=== PATIENT | male | born 1990 | race Caucasian/White ===

== ENCOUNTER → 2017-05-28 | Outpatient (CLI) | payer OTHER, SELFPAY | PROVIDERS: Family Provider Emergency Medicine; Visit Provider Nurse Practitioner Family | DX: Z02.4 Encounter for examination for driving license (principal) ==

== ENCOUNTER 2019-12-04 14:03 | Emergency (ER) | payer OTHER, SELFPAY ==
[2019-12-04 14:17] VITALS: BP 133/69; PULSE 71; RESP 18; TEMP 36.8; O2SAT 98; BMI 35.2
[2019-12-04 14:21] VITALS: BMI 35.2
--- NOTE | 2019-12-04 14:21 | XR_ITS ---
PROCEDURE: XR ANKLE RT MIN 3V CLINICAL INDICATION: injury Posttraumatic pain COMPARISON: XR FOOT RT MIN 3V from 12/04/2019 FINDINGS: There is mild soft tissue swelling along the lateral malleolar region. No fracture or dislocation. IMPRESSION: Soft tissue swelling otherwise negative Dictated by: Ace Erickson MD 12/04/2019 14:39 Electronically signed by Ace Erickson MD in [place] 12/04/2019 14:39
[2019-12-04 14:35] VITALS: BP 133/69; PULSE 71; RESP 18; TEMP 36.8; O2SAT 98; BMI 35.2
--- NOTE | 2019-12-04 14:54 | HMH.EDUTC ---
[facility] [place]ression: Right ankle sprain Qualifiers: Encounter type: initial encounter Involved ligament of ankle: unspecified ligament Qualified Code(s): S93.401A - Sprain of unspecified ligament of right ankle, initial encounter Right foot sprain Qualifiers: Encounter type: initial encounter Qualified Code(s): S93.601A - Unspecified sprain of right foot, initial encounter Disposition: Home, Self-Care Condition on Discharge: Good Instructions: DI for Ankle Sprain, DI for Foot Sprain Additional Instructions: Rest the extremity, apply ice for 15 minutes as tolerated three or four times per day, Elevate the extremity as tolerated while you are resting. Take ibuprofen for pain. I sent in a prescription to your pharmacy. Follow up with Dr. Badillo. I put in a referral but you need to call her office and schedule an appointment. Follow up with your regular doctor. GO TO THE ER FOR ANY WORSENING SYMPTOMS Prescriptions: Ibuprofen [Ibuprofen 800mg Tablet] 800 mg PO TIDP PRN #30 tab PRN Reason: Moderate Pain Transmission Status: Received by [id number] Referrals: Mayur López MD [Primary Care Provider] - Francy Badillo DPM [Staff Physician] - Forms: Work/School Release Time of Disposition: 14:58 Medical Decision Making - Medical Records Medical records reviewed: No: I reviewed the patient's medical records. - George Inquiry Pt receiving controlled substance: No Vital Signs: 12/04/19 14:17 12/04/19 14:35 12/04/19 15:10 Temperature 98.2 F 98.2 F 98.2 F Temperature Source Oral Oral Pulse Rate 71 Pulse Rate [Left Radial] 71 71 Respiratory Rate 18 18 18 Blood Pressure 133/69 Blood Pressure [Left Arm] 133/69 133/69 Blood Pressure Mean [Left Arm] 90 90 Blood Pressure Source [Left Arm] Automatic Cuff Automatic Cuff Blood Pressure Position [Left Arm] Sitting Sitting 02 Sat by Pulse Oximetry 98 98 Oxygen Delivery Method Room Air Room Air Orders (Tests/Meds): ED MEDICATIONS Discontinued Medications Generic Name Dose Route Start Last Admin Trade Name Freq PRN Reason Stop Dose Admin Ibuprofen 800 mg 12/04/19 14:57 12/04/19 15:03 Motrin 400mg Tablet PO 12/04/19 14:58 800 mg ONCE ONE Administration Ibuprofen 800 mg 12/04/19 14:58 12/04/19 15:03 Motrin 400mg Tablet PO 12/04/19 14:59 Not Given ONCE ONE - Radiology Data #1 Image(s): Foot/Toes Image Reviewed: Yes I reviewed the patient's radiology image, Yes I have reviewed radiologist's interpretation Preliminary Findings: No Fracture Seen PROCEDURE: XR ANKLE RT MIN 3V CLINICAL INDICATION: injury Posttraumatic pain COMPARISON: XR FOOT RT MIN 3V from 12/04/2019 FINDINGS: There is mild soft tissue swelling along the lateral malleolar region. No fracture or dislocation. IMPRESSION: Soft tissue swelling otherwise negative Dictated by: Ace Erickson MD 12/04/2019 14:39 Electronically signed by Ace Erickson MD in [place] 12/04/2019 14:39 #2 Image(s): Ankle Image Reviewed: Yes I reviewed the patient's radiology image, Yes I have reviewed radiologist's interpretation Preliminary Findings: No Fracture Seen PROCEDURE: XR ANKLE RT MIN 3V CLINICAL INDICATION: injury Posttraumatic pain COMPARISON: XR FOOT RT MIN 3V from 12/04/2019 FINDINGS: There is mild soft tissue swelling along the lateral malleolar region. No fracture or dislocation. IMPRESSION: Soft tissue swelling otherwise negative Dictated by: Ace Erickson MD 12/04/2019 14:39 Electronically signed by Ace Erickson MD in [place] 12/04/2019 14:39 [facility] [place] - General Stated complaint: AO 12/04/19 1:40 right ankle stepped off truck Time Seen by Provider: 12/04/19 14:30 Mode of Arrival: Ambulatory Source of Information: Patient Limitations: No Limitations Description of Symptoms (Recalled from Triage Doc. by RN): Pt c/o R ankle pain/swelling pt reports he stepped off the reginald
[2019-12-04 15:10] VITALS: BP 133/69; PULSE 71; RESP 18; TEMP 36.8; O2SAT 98
== END 2019-12-04 15:15 | disposition home or self-care (01) ==
LOC: UTC 15:18
PROVIDERS: Emergency Provider Nurse Practitioner Family; PCP Family Medicine
DX: S93.601A Unspecified sprain of right foot, initial encounter; X50.1XXA Overexertion from prolonged static or awkward postures, initial encounter; Y92.89 Other specified places as the place of occurrence of the external cause
CPT/HCPCS: 29515; 73610; 73630; 99201; 99203

== ENCOUNTER 2020-08-16 09:14 | Emergency (ER) | payer SELFPAY ==
[2020-08-16 09:24] VITALS: BP 151/90; PULSE 74; RESP 16; TEMP 36.6; O2SAT 98; BMI 35.2
--- NOTE | 2020-08-16 09:30 | HMH.EDUTC ---
[facility] [place] Clinical Impression: Low back pain Qualifiers: Chronicity: unspecified Back pain laterality: left Sciatica presence: with sciatica Sciatica laterality: sciatica of left side Qualified Code(s): M54.42 - Lumbago with sciatica, left side Disposition: Home, Self-Care Condition on Discharge: Good Instructions: Low Back Pain, DI for Low Back Pain Additional Instructions: Go home and rest. It would be best if you rested tomorrow too. No heavy lifting. No twisting. Take the oral medications as directed. The muscle relaxer (robaxin) will make you drowsy, so don't drive or operate heavy machinery after taking it. Don't start the oral steroids (medrol dose pack) until tomorrow, since you had the shots in here today. Follow up with your regular doctor. GO TO THE ER FOR ANY WORSENING SYMPTOMS OR CONCERN, ESPECIALLY BOWEL OR BLADDER ISSUES, SADDLE AREA NUMBNESS, FEVER, ETC Prescriptions: methylPREDNISolone [Medrol] 4 mg PO DIRECTED 6 Days #21 tab.ds.pk Transmission Status: Received by [facility] methocarbamoL [Robaxin 750mg Tab] 750 mg PO BIDP PRN #30 tab PRN Reason: Muscle Spasm Transmission Status: Received by [facility] Referrals: Mayur López MD [Primary Care Provider] - Time of Disposition: 10:46 Medical Decision Making - Medical Records Medical records reviewed: No: I reviewed the patient's medical records. - George Inquiry Pt receiving controlled substance: No Vital Signs: 08/16/20 09:24 08/16/20 10:18 Temperature 98 F 98 F Temperature Source Tympanic Oral Pulse Rate 71 Pulse Rate [Right] 74 Respiratory Rate 16 16 Blood Pressure 142/86 H Blood Pressure [Right Arm] 151/90 H Blood Pressure Mean [Right Arm] 110 Blood Pressure Source [Right Arm] Automatic Cuff Blood Pressure Position [Right Arm] Sitting 02 Sat by Pulse Oximetry 98 Oxygen Delivery Method Room Air - Lab Data Lab Results 08/16/20 09:30: Urine Color Yellow, Urine Appearance Clear, Urine pH 5.0, Ur Specific [place] 1.030, Urine Protein Negative, Urine Glucose (UA) Negative, Urine Ketones Negative, Urine Blood Negative, Urine Nitrate Negative, Urine Bilirubin Negative, Urine Urobilinogen 0.2, Ur Leukocyte Esterase Negative Orders (Tests/Meds): ED MEDICATIONS Discontinued Medications Generic Name Dose Route Start Last Admin Trade Name Mayte PRN Reason Stop Dose Admin Ketorolac Tromethamine 60 mg 08/16/20 10:11 08/16/20 10:17 Ketorolac 60mg/2ml Vial IM 08/16/20 10:12 60 mg ONCE ONE Administration Methylprednisolone Sodium Succinate 125 mg 08/16/20 10:11 08/16/20 10:17 Methylprednisolone Sod Succ 125mg Vial IM 08/16/20 10:12 125 mg ONCE ONE Administration - Radiology Data #1 Image(s): L-Spine Image Reviewed: Yes I reviewed the patient's radiology image, Yes I have reviewed radiologist's interpretation Preliminary Findings: Abnormal PROCEDURE: XR LUMBAR SPINE 2-3V CLINICAL INDICATION: pain COMPARISON: No exams were available for comparison FINDINGS: Postsurgical changes are present with inter pedicular screws and connecting rods at L3-L4 and L5. Mild concave deformity involves the superior endplate of L4 age indeterminate. There is normal alignment. No lytic or blastic change. There is mild degenerative disc disease at L3-L4. Other findings:None. IMPRESSION: Postsurgical changes. Mild compression fracture involves the superior endplate of L4 age indeterminate Dictated by: Ace Erickson MD 08/16/2020 10:49 Ace Erickson MD in [place] 08/16/2020 10:49 [facility] [place] HPI - General Stated complaint: sharp pain lower left back, no accident Time Seen by Provider: 08/16/20 09:30 Mode of Arrival: Ambulatory Source of Information: Patient Limitations: No Limitations Description of Symptoms (Recalled from Triage Doc. by RN): pt is having lower Left sided back pain. he has a hx with broken vertebrae in his lower back. (he h
--- NOTE | 2020-08-16 09:43 | XR_ITS ---
PROCEDURE: XR LUMBAR SPINE 2-3V CLINICAL INDICATION: pain COMPARISON: No exams were available for comparison FINDINGS: Postsurgical changes are present with inter pedicular screws and connecting rods at L3-L4 and L5. Mild concave deformity involves the superior endplate of L4 age indeterminate. There is normal alignment. No lytic or blastic change. There is mild degenerative disc disease at L3-L4. Other findings:None. IMPRESSION: Postsurgical changes. Mild compression fracture involves the superior endplate of L4 age indeterminate Dictated by: Ace Erickson MD 08/16/2020 10:49 Ace Erickson MD in [place] 08/16/2020 10:49
[2020-08-16 10:15] LABS: Apearance,Urine Clear (Clear); Color,Urine Yellow (Yellow); Protein,Urine Negative (Negative)
[2020-08-16 10:16] LABS: Bilirubin,Urine Negative (Negative); Blood, Urine Negative (Negative); Glucose,Urine (UA) Negative (Negative); Ketones,Urine Negative (Negative); UTC Leukocyte Esterase,Urine Negative (Negative); UTC Nitrate,Urine Negative (Negative); Urobilinogen,Urine 0.2 EU/dl (0.2)
[2020-08-16 10:18] VITALS: BP 142/86; PULSE 71; RESP 16; TEMP 36.6
== END 2020-08-16 10:54 | disposition home or self-care (01) ==
PROVIDERS: Emergency Provider Nurse Practitioner Family; PCP Family Medicine
DX: M54.42 Lumbago with sciatica, left side (principal)
CPT/HCPCS: 72100; 81003; 96372; 99202; G0463

== ENCOUNTER 2021-08-29 10:47 | Emergency (ER) | payer SELFPAY ==
[2021-08-29 12:05] VITALS: BP 142/91; PULSE 89; RESP 19; TEMP 36.8; O2SAT 98; BMI 43.4
--- NOTE | 2021-08-29 12:29 | HMH.EDUTC ---
[facility] [place]: Otitis media Qualifiers: Otitis media type: suppurative Chronicity: acute Laterality: bilateral Recurrence: non-recurrent Spontaneous tympanic membrane rupture: without spontaneous rupture Qualified Code(s): H66.003 - Acute suppurative otitis media without spontaneous rupture of ear drum, bilateral Pharyngitis Qualifiers: Pharyngitis/tonsillitis etiology: other specified organisms Qualified Code(s): J02.8 - Acute pharyngitis due to other specified organisms Disposition: Home, Self-Care Condition on Discharge: Good Instructions: Middle Ear Infection Additional Instructions: Drink plenty of fluids. Take tylenol or ibuprofen for pain or fever. Take the medications as directed. Follow up with your regular doctor. GO TO THE ER FOR ANY WORSENING SYMPTOMS Stop the azithromycin pack that you are taking. Prescriptions: Brompheniramine/Pseudoephed/Dm [Bromfed Dm Cough Syrup] 5 ml PO Q6HP PRN #240 ml PRN Reason: Cough Transmission Status: Received by [facility] Amoxicillin/Potassium Clav [Amox-Clav 875-125 mg Tablet] 1 tab PO BID #20 tab Transmission Status: Received by [facility] methylPREDNISolone [Medrol] 4 mg PO DIRECTED 6 Days #21 packet Transmission Status: Received by [facility] Referrals: Provider,Referral, [Primary Care Provider] - Forms: Work/School Release Time of Disposition: 12:33 Medical Decision Making - Medical Records Medical records reviewed: No: I reviewed the patient's medical records. - George Inquiry Pt receiving controlled substance: No Vital Signs: 08/29/21 12:05 08/29/21 12:45 Temperature 98.3 F 98.3 F Temperature Source Oral Pulse Rate 89 Pulse Rate [Left Brachial] 89 Respiratory Rate 19 19 Blood Pressure 142/91 H Blood Pressure [Left Arm] 142/91 H Blood Pressure Mean [Left Arm] 108 Blood Pressure Source [Left Arm] Automatic Cuff Blood Pressure Position [Left Arm] Sitting 02 Sat by Pulse Oximetry 98 Oxygen Delivery Method Room Air - Lab Data Lab Results 08/29/21 12:10: Group A Strep Rapid Negative Orders (Tests/Meds): ORDERS Category Date Time Status Strep Screen Confirmation Stat Micro 08/29/21 12:10 Re[place] [facility] [place] - General Stated complaint: SOA,cough,ear pain Time Seen by Provider: 08/29/21 12:29 Mode of Arrival: Ambulatory Source of Information: Patient Limitations: No Limitations Description of Symptoms (Recalled from Triage Doc. by RN): PATIENT STATES HE WAS RECENTLY EXPOSED TO STREP, C/O SORE THROAT AND EAR PAIN X 2 DAYS HEENT Symptoms (Recalled from RN notes): Yes Resp Symptoms (Recalled from RN notes): No Skin Symptoms (Recalled from RN notes): No MS Symptoms (Recalled from RN notes): No Functional Status (Recalled from RN notes): WNL - History of Present Illness Provider Complaint: He states that both his daughter and had strep throat last week. He started to feel bad about 3 days ago. He has started a z-pack, but he states that he is feeling worse instead of better. He denies shortness of breath. - Related Data Previous Rx's Medication Instructions Recorded Ibuprofen [Ibuprofen 800mg 800 mg PO TIDP PRN #30 tab 12/04/19 Tablet] methocarbamoL [Robaxin 750mg Tab] 750 mg PO BIDP PRN #30 tab 08/16/20 methylPREDNISolone [Medrol] 4 mg PO DIRECTED 6 Days #21 08/16/20 tab.ds.pk Azithromycin [Z-Nicola 250mg Tab*] 250 mg PO UD DOSE PK #6 tab 08/25/21 Amoxicillin/Potassium Clav 1 tab PO BID #20 tab 08/29/21 [Amox-Clav 875-125 mg Tablet] Brompheniramine/Pseudoephed/Dm 5 ml PO Q6HP PRN #240 ml 08/29/21 [Bromfed Dm Cough Syrup] methylPREDNISolone [Medrol] 4 mg PO DIRECTED 6 Days #21 08/29/21 packet Allergies Allergy/AdvReac Type Severity Reaction Status Date / Time No Known Allergies Allergy Verified 08/16/20 09:20 - Worker's Comp Is this a Worker's Comp case?: No [facility] History - Hepatitis A Screen
[2021-08-29 12:44] LABS: Strep Scrn Group A (Rapid) Negative (Negative)
[2021-08-29 12:45] VITALS: BP 142/91; PULSE 89; RESP 19; TEMP 36.8; O2SAT 98
== END 2021-08-29 12:47 | disposition home or self-care (01) ==
PROVIDERS: Emergency Provider Nurse Practitioner Family
DX: H66.003 Acute suppurative otitis media without spontaneous rupture of ear drum, bilateral (principal); J02.8 Acute pharyngitis due to other specified organisms
CPT/HCPCS: 87430; 99212; G0463

== ENCOUNTER 2021-10-24 18:03 | Emergency (ER) | payer SELFPAY ==
[2021-10-24 19:15] VITALS: BP 173/83; PULSE 106; RESP 16; TEMP 37.4; O2SAT 95; BMI 33.9
[2021-10-24 19:20] LABS: Strep Scrn Group A (Rapid) Negative (Negative)
--- NOTE | 2021-10-24 19:32 | HMH.EDUTC ---
[facility] [place] Disposition Clinical Impression: Otitis media Qualifiers: Otitis media type: unspecified Laterality: bilateral Qualified Code(s): H66.93 - Otitis media, unspecified, bilateral Disposition: Home, Self-Care Condition on Discharge: Good Instructions: DI for Tympanic Membrane Perforation-Adult, Middle Ear Infection Additional Instructions: Take medication as prescribed Follow up with ENT you may call the office for appointment Return if needed Straight to ER if any life threatening symptoms Prescriptions: Amoxicillin/Potassium Clav [Amox-Clav 875-125 mg Tablet] 1 tab PO BID #20 tab Transmission Status: Pending to [id number] Referrals: Mayur López MD [Primary Care Provider] - As needed Luiz Ford MD [Physician] - Kt Rossi MD [Physician] - Time of Disposition: 19:43 Medical Decision Making - George Inquiry Pt receiving controlled substance: No George was queried for this patient: No Vital Signs: 10/24/21 19:15 Temperature 99.4 F Temperature Source Oral Pulse Rate [Left Brachial] 106 H Respiratory Rate 16 Blood Pressure [Left Arm] 173/83 H Blood Pressure Mean [Left Arm] 113 Blood Pressure Source [Left Arm] Automatic Cuff Blood Pressure Position [Left Arm] Sitting 02 Sat by Pulse Oximetry 95 Oxygen Delivery Method Room Air - Lab Data Lab results reviewed: Yes: I reviewed the patient's lab results. Lab Results 10/24/21 19:08: Group A Strep Rapid Negative Orders (Tests/Meds): ORDERS Category Date Time Status Strep Screen Confirmation Stat Micro 10/24/21 19:08 Received [facility] [place] HPI - General Stated complaint: ear ache Time Seen by Provider: 10/24/21 19:32 Mode of Arrival: Ambulatory Source of Information: Patient Limitations: No Limitations Description of Symptoms (Recalled from Triage Doc. by RN): PATIENT C/O BILATERAL EAR PAIN AND SORE THROAT X 1 WEEK HEENT Symptoms (Recalled from RN notes): Yes Resp Symptoms (Recalled from RN notes): No Skin Symptoms (Recalled from RN notes): No MS Symptoms (Recalled from RN notes): No Functional Status (Recalled from RN notes): WNL - History of Present Illness Provider Complaint: Patient state that he has been having sore throat and bilateral ear pain and pressure States that it has continued to get worse over the last week states that he noticed some blood coming from his right ear and thinks his ear drum may have busted state that tonight his ears was hurting worse so he came in - Related Data Previous Rx's Medication Instructions Recorded Amoxicillin/Potassium Clav 1 tab PO BID #20 tab 10/24/21 [Amox-Clav 875-125 mg Tablet] Allergies Allergy/AdvReac Type Severity Reaction Status Date / Time No Known Allergies Allergy Verified 08/16/20 09:20 - Worker's Comp Is this a Worker's Comp case?: No [facility] History - Hepatitis A Screen Attestation statement:: This patient has been screened for Hepatitis A risk factors. I have reviewed the patient's past medical history: Yes Other Surgeries: Yes: Other Comment: Back 2007. Left Leg x 2 - Social History Smoking Status: Unknown if ever smoked Alcohol Intake: never Occupational Status: employed Family Hx:: Cancer ROS Obtained: Yes All systems reviewed & no additional complaints, Yes Systems reviewed as appropriate & no additional complaints - Constitutional Constitutional: Reports system reviewed and no additional complaints, except as docu, Denies body ache, Denies chills, Reports fever(s) - ENT Ears, Nose, Mouth, and Throat: Reports system reviewed and no additional complaints, except as docu, Reports otalgia, Reports sore throat - Cardiovascular Cardiovascular: Reports system reviewed and no additional complaints, except as docu - Respiratory Respiratory: Reports system reviewed and no additional complaints, except as docu - Gastrointestinal Gastrointestingal: Reports: system reviewed and no additional complaints, except as
[2021-10-24 19:47] VITALS: BP 173/83; PULSE 106; RESP 16; TEMP 37.4; O2SAT 95
== END 2021-10-24 19:51 | disposition home or self-care (01) ==
PROVIDERS: Emergency Provider Nurse Practitioner; PCP Family Medicine
DX: H66.93 Otitis media, unspecified, bilateral (principal)
CPT/HCPCS: 87430; 99212; G0463

== ENCOUNTER 2022-01-18 02:32 | Emergency (ER) | payer SELFPAY ==
[2022-01-18 02:34] VITALS: BP 113/82; PULSE 76; RESP 18; TEMP 36.8; O2SAT 100; BMI 37.3
--- NOTE | 2022-01-18 02:44 | PC.NURSE ---
EYE BOX PLACED IN ROOM. PT DENIES NEEDS AT THIS TIME. EDU.
--- NOTE | 2022-01-18 03:00 | HMH.EDEYEP ---
ED Disposition Clinical Impression: Iritis Corneal FB (foreign body) Qualifiers: Encounter type: initial encounter Laterality: left Qualified Code(s): T15.02XA - Foreign body in cornea, left eye, initial encounter Disposition: Home, Self-Care Condition on Discharge: Good Instructions: DI for Foreign Body in the Eye Additional Instructions: use meds and see eye provider madan Referrals: Mayur López MD [Primary Care Provider] - - Critical Care Critical Care Time: No Attestation: On 01/18/22, the high probability of a clinically significant, sudden or life threatening deterioration of the following system(s) required my full and direct attention, intervention and personal management. The time I documented below is in addition to time spent performing reported procedures but includes the following listed in this critical care notation. Medical Decision Making - Medical Records Medical records reviewed: Yes: I reviewed the patient's medical records. - George Inquiry Pt receiving controlled substance: No Vital Signs: 01/18/22 02:34 Temperature 98.2 F Temperature Source Oral Pulse Rate [Right] 76 Respiratory Rate 18 Blood Pressure [Right Arm] 113/82 Blood Pressure Mean [Right Arm] 92 02 Sat by Pulse Oximetry 100 - Lab Data Lab results reviewed: Yes: I reviewed the patient's lab results. Eye Problem HPI - General Chief complaint: Eye Problems Stated complaint: Left eye sensitive to light,hurts,cosme Time Seen by Provider: 01/18/22 03:00 Mode of Arrival: Ambulatory Source of Information: Patient, Medical Record Limitations: No Limitations Description of Symptoms (Recalled from ER Triage Doc. by RN): pt states woke up yesterday mornig and lt eye swollwn, puffy, burning, and painful to close - History of Present Illness HPI Narrative: atraumatic pain to lt eye with reddness and sensitive to light - no contacts and no visual loss - chief complaint: eye redness Onset (ago): day(s) Onset description: unknown Duration: constant Location: left eye Eye Symptoms: redness, photophobia Place: home Mechanism: none Severity: moderate Associated symptoms: none Treatments Prior to Arrival: none - Related Data Previous Rx's Medication Instructions Recorded Amoxicillin/Potassium Clav 1 tab PO BID #20 tab 10/24/21 [Amox-Clav 875-125 mg Tablet] ciprofloxacin 0.3 %-dexamethasone 4 drp OT BID 7 Days #7.5 ml 10/28/21 0.1 % ear drops,suspension fluticasone propionate 50 1 spray NS BID #16 g 10/28/21 mcg/actuation nasal spray,suspension methylprednisolone 4 mg tablets in 4 mg PO DAILY #21 tab 11/12/21 a dose pack Allergies Allergy/AdvReac Type Severity Reaction Status Date / Time No Known Allergies Allergy Verified 11/12/21 12:51 [facility] History - Hepatitis A Screen Attestation statement:: This patient has been screened for Hepatitis A risk factors. I have reviewed the patient's past medical history: Yes Other Surgeries: Yes: Other Comment: Back 2007. Left Leg x 2 - Social History Smoking Status: Unknown if ever smoked Alcohol Intake: never Occupational Status: employed Family Hx:: Cancer ROS Obtained: Yes All systems reviewed & no additional complaints - Constitutional Constitutional: Denies fever(s) - Eyes Eyes: Reports as per HPI, Denies change in vision, Denies loss of vision, Reports sensitivity to light, Reports eye pain, Denies tunnel vision - ENT Ears, Nose, Mouth, and Throat: Denies epistaxis - Cardiovascular Cardiovascular: Denies dyspnea - Respiratory Respiratory: Denies shortness of breath - Gastrointestinal Gastrointestingal: Denies: abdominal pain - Genitourinary Male Genitourinary: Denies hematuria - Musculoskeletal Musculoskeletal: Denies neck pain - Integumentary/Breasts Skin/Breast: Denies rash - Neurologic Neurologic: Denies confusion, Denies loss of vision Physical Exam - General General appearance: alert -
[2022-01-18 03:36] VITALS: BP 110/74; PULSE 72; RESP 18; TEMP 36.8; O2SAT 100
--- NOTE | 2022-01-18 07:59 | PC.NURSE ---
spoke via phone with Dr Zaman. Dr Zaman advised that he is going to call pt and speak with them. Phone number in chart was provided to Dr Zaman.
== END 2022-01-18 03:41 | disposition home or self-care (01) ==
PROVIDERS: Emergency Provider Emergency Medicine; PCP Family Medicine
DX: T15.02XA Foreign body in cornea, left eye, initial encounter (principal); H53.142 Visual discomfort, left eye; Z79.51 Long term (current) use of inhaled steroids; Z79.52 Long term (current) use of systemic steroids; Z79.899 Other long term (current) drug therapy; Z80.9 Family history of malignant neoplasm, unspecified
CPT/HCPCS: 99283

== ENCOUNTER → 2022-06-15 10:10 | Outpatient (CLI) | payer OTHER, SELFPAY ==
--- NOTE | 2022-06-15 10:21 | XR_ITS ---
FINAL REPORT CLINICAL HISTORY: . back pain, headache, hx fusion at 16 years old. COMPARISON: Lumbar spine radiographs dated August 16, 2020 FINDINGS: CERVICAL SPINE Five views were obtained. There is no acute fracture. There is no malalignment. The disc spaces are preserved. There is no soft tissue abnormality. IMPRESSION: No acute bony abnormality. THORACIC SPINE Two views were obtained. There is no acute fracture. There is no malalignment. There are mild degenerative changes in the lower thoracic spine with small osteophytes. There is no soft tissue abnormality. IMPRESSION: Mild degenerative changes with no acute bony abnormality. LUMBAR SPINE Five views were obtained. There are postoperative changes from fusion L3 through L5. There is no acute fracture. There is a chronic L4 compression fracture which appears stable. There is no malalignment. There are mild degenerative changes in the upper lumbar spine with osteophytes. There is no soft tissue abnormality. IMPRESSION: Postoperative and degenerative changes, stable. No acute bony abnormality. Reviewed, Interpreted and Dictated by Eduardo Romano III, MD Transcribed by Dyan Fournier Authenticated and [facility]
== END ==
PROVIDERS: PCP Nurse Practitioner Family; Visit Provider Nurse Practitioner Family
DX: R51.9 Headache, unspecified (principal); M54.6 Pain in thoracic spine; M54.50 Low back pain, unspecified; Z98.1 Arthrodesis status
CPT/HCPCS: 72084

== ENCOUNTER 2022-09-02 08:01 | Emergency (ER) | payer OTHER, SELFPAY ==
[2022-09-02 08:10] VITALS: BP 140/85; PULSE 63; RESP 20; TEMP 37.1; O2SAT 98; BMI 35.2
--- NOTE | 2022-09-02 08:44 | EXP.UTC ---
Discharge Plan Disposition Patient Disposition: Home, Self-Care Condition: Good Prescriptions Prescriptions: New methylprednisolone 4 mg Tablets,Dose Pack 4 mg PO DIRECTED Qty: 21 0RF amoxicillin-pot clavulanate 875-125 mg Tablet 1 tab PO Q12H Qty: 20 0RF pseudoephedrine HCl 30 mg tablet 30 mg PO Q6HP PRN (Reason: Congestion) Qty: 30 0RF Referrals Follow up/Referrals: Solange Fierro APRN [Primary Care Provider] - See instructions Activity Restrictions/Add. Instructions Additional Instructions/Restrictions: Drink plenty of fluids. Take tylenol or ibuprofen for pain or fever. Take the medications as directed. Follow up with your regular doctor. GO TO THE ER FOR ANY WORSENING SYMPTOMS Clinical Impressions Clinical Impression: Otitis media Instructions Patient Instructions: Middle Ear Infection, Methylprednisolone, Amoxicillin and Clavulanic Acid Discharge ED Provider: Amrit Cates [facility] [place] HPI General Stated complaint: congestion, ear pain, hard time hearing Mode of Arrival: Ambulatory Source of Information: Patient Limitations: No Limitations Time Seen by Provider: 09/02/22 08:43 Description of Symptoms (Recalled from Triage Doc. by RN): Ears congested for 3 days, and bilateral ear pressure HEENT Symptoms (Recalled from RN notes): Yes Resp Symptoms (Recalled from RN notes): No Skin Symptoms (Recalled from RN notes): No MS Symptoms (Recalled from RN notes): No Functional Status (Recalled from RN notes): n/a History of Present Illness Provider Complaint: He states that he has had ear pain and sinus congestion for 3 days. Related Data Previous Rx's Medication Instructions Recorded amoxicillin 875 mg-potassium 1 tab PO Q12H #20 tabs 09/02/22 clavulanate 125 mg tablet methylprednisolone 4 mg tablets in 4 mg PO DIRECTED #21 tabs 09/02/22 a dose pack pseudoephedrine HCl 30 mg tablet 30 mg PO Q6HP PRN Congestion #30 09/02/22 tabs Allergies Allergy/AdvReac Type Severity Reaction Status Date / Time No Known Allergies Allergy Verified 09/02/22 08:08 Worker's Comp Is this a Worker's Comp case?: No [facility] Disclaimer: The information contained in this section may have been updated after the patient was seen, as this information can be updated by other users. Social History Smoking Status: Unknown if ever smoked alcohol intake: never current occupational status: employed Travel in the last 8 weeks: None ROS Obtained: Yes All systems reviewed & no additional complaints except as documented Constitutional Constitutional: Reports poor appetite Eyes Eyes: Reports system reviewed and no additional complaints, except as documented ENT Ears, Nose, Mouth, and Throat: Reports as per HPI Cardiovascular Cardiovascular: Reports system reviewed and no additional complaints, except as documented and Denies chest pain Respiratory Respiratory: Denies shortness of breath, Denies chest congestion, Reports cough, Denies stridor and Denies wheezing Gastrointestinal Gastrointestingal: Reports system reviewed and no additional complaints, except as documented; Denies abdominal pain, diarrhea or vomiting Musculoskeletal Musculoskeletal: Reports system reviewed and no additional complaints, except as documented and Denies arthralgias Integumentary/Breasts Skin/Breast: Reports system reviewed and no additional complaints, except as documented and Denies rash Neurologic Neurologic: Denies paresthesias Allergic/Immunologic Allergic/Immunologic: Denies wheezing Physical Exam General General appearance: alert and in no apparent distress Head Head exam: atraumatic, normocephalic and normal inspection Eye Eye exam: Present normal appearance; Absent PERRL or EOMI ENT ENT exam: Present mucous membranes moist and normal external ear exam Expanded ENT Exam TM/Canal exam: Bilateral TM: erythema, bulging and effusion Nose exam:
[2022-09-02 09:04] VITALS: BP 140/85; PULSE 63; RESP 20; TEMP 37.1; O2SAT 98
== END 2022-09-02 09:01 | disposition home or self-care (01) ==
PROVIDERS: Emergency Provider Nurse Practitioner Family; PCP Nurse Practitioner Family
DX: H66.93 Otitis media, unspecified, bilateral (principal); R09.81 Nasal congestion
CPT/HCPCS: 99212; 99214; G0463

== ENCOUNTER 2023-05-13 09:29 | Emergency (ER) | payer OTHER, SELFPAY ==
--- NOTE | 2023-05-13 10:26 | EXP.UTC ---
Discharge Plan Disposition Patient Disposition: Home, Self-Care Condition: Good Prescriptions Prescriptions: New ondansetron 4 mg Tablet,Disintegrating 4 mg PO Q8H PRN (Reason: Nausea) Qty: 12 0RF dicyclomine 20 mg tablet 20 mg PO BID PRN (Reason: abdominal cramping) Qty: 20 0RF Referrals Follow up/Referrals: Provider,Referral, MD [Primary Care Provider] - See instructions Activity Restrictions/Add. Instructions Additional Instructions/Restrictions: Drink plenty of fluids. Take tylenol for pain or fever. Take the medications as directed. Follow up with your regular doctor. GO TO THE ER FOR ANY WORSENING SYMPTOMS, ESPECIALLY WORSENING ABDOMINAL PAIN The diarrhea panel that we collected should take 2 to 3 days to complete. Clinical Impressions Clinical Impression: Gastroenteritis, Diarrhea Stand Alone Forms Stand Alone Forms: Work/School Release Instructions Patient Instructions: Viral Gastroenteritis, DI for Viral Gastroenteritis -- Adult, Ondansetron, Dicyclomine Discharge ED Provider: Amrit Cates [facility] General Stated complaint: diarreah, nausea, cold sweats Time Seen by Provider: 05/13/23 10:26 History of Present Illness Provider Complaint: He states that for the past 1 day he has had nausea and diarrhea. He has felt like he was going to vomit, but he has not vomited so far. He has abdominal cramping, but no constant abdominal pain. He has had chills, but no documented fever. Related Data Previous Rx's Medication Instructions Recorded dicyclomine 20 mg tablet 20 mg PO BID PRN abdominal 05/13/23 cramping #20 tabs ondansetron 4 mg disintegrating 4 mg PO Q8H PRN Nausea #12 tabs 05/13/23 tablet Allergies Allergy/AdvReac Type Severity Reaction Status Date / Time No Known Allergies Allergy Verified 05/13/23 10:58 [facility] Disclaimer: The information contained in this section may have been updated after the patient was seen, as this information can be updated by other users. Social History Smoking Status: Unknown if ever smoked alcohol intake: never current occupational status: employed Travel in the last 8 weeks: None ROS Obtained: Yes All systems reviewed & no additional complaints except as documented Constitutional Constitutional: Denies chills, Denies fever(s) and Reports poor appetite ENT Ears, Nose, Mouth, and Throat: Denies dizziness and Denies sore throat Cardiovascular Cardiovascular: Denies dyspnea Respiratory Respiratory: Denies chest congestion, Denies cough and Denies dyspnea Gastrointestinal Gastrointestingal: Reports as per HPI, cramping, diarrhea and nausea; Denies abdominal pain or vomiting Musculoskeletal Musculoskeletal: Denies arthralgias Integumentary/Breasts Skin/Breast: Denies rash Neurologic Neurologic: Denies dizziness Physical Exam General General appearance: alert and in no apparent distress Head Head exam: atraumatic and normocephalic Eye Eye exam: Present normal appearance, PERRL and EOMI ENT ENT exam: Present normal exam, normal oropharynx, mucous membranes moist, TM's normal bilaterally and normal external ear exam Neck Neck exam: Present normal inspection, full ROM and trachea midline; Absent tenderness, meningismus or lymphadenopathy Chest Chest inspection: Present normal inspection and symmetric chest wall rise; Absent tenderness, rash or abscess Respiratory Respiratory exam: Present normal lung sounds bilaterally; Absent respiratory distress, wheezes or stridor Cardiovascular Cardiovascular exam: Present regular rate and normal rhythm; Absent irregular rhythm, systolic murmur, diastolic murmur or JVD Abdominal Exam Abdominal exam: Present soft and hyperactive bowel sounds; Absent distention, tenderness, guarding, rebound, rigidity, psoas sign, obturator sign, heel tap sign, Herrera's sign, Rovsing's sign or tenderness at McBurney's Point Extremities Exam
[2023-05-13 10:30] VITALS: BP 119/80; PULSE 103; RESP 18; TEMP 37; O2SAT 99; BMI 29.7
[2023-05-13 10:38] LABS: UTC Influenza A Antigen Negative (Negative); UTC Influenza B Antigen Negative (Negative)
[2023-05-13 10:57] LABS: Adenovirus F 40/41, stool Not Detected (NotDetected); Astrovirus Not Detected (NotDetected); Campylobacter Not Detected (NotDetected); Clostridium Difficile A/B, PCR Not Detected (NotDetected); Cryptosporidium Not Detected (NotDetected); Cyclospora Cayetanesis Not Detected (NotDetected); Entamoeba histolytica Not Detected (NotDetected); Enteroaggregative E coli Not Detected (NotDetected); Enteropathogenic E coli Not Detected (NotDetected); Enterotoxigenic E coli Not Detected (NotDetected); Giardia lamblia Not Detected (NotDetected); Norovirus Not Detected (NotDetected); Plesimonas Shigalloides, PCR Not Detected (NotDetected); Rotavirus A Not Detected (NotDetected); Salmonella, PCR Not Detected (NotDetected); Sapovirus Not Detected (NotDetected); Shiga-like toxin E coli Not Detected (NotDetected); Shigella Enterovasive E coli Not Detected (NotDetected); Vibrio Cholerae Not Detected (NotDetected); Vibrio, PCR Not Detected (NotDetected); Yersinia Entercolitica, PCR Not Detected (NotDetected)
[2023-05-13 11:15] VITALS: BP 119/80; PULSE 103; RESP 18; TEMP 37; O2SAT 99
== END 2023-05-13 11:15 | disposition home or self-care (01) ==
PROVIDERS: Emergency Provider Nurse Practitioner Family
DX: K52.9 Noninfective gastroenteritis and colitis, unspecified (principal); R11.0 Nausea; R10.819 Abdominal tenderness, unspecified site; R68.83 Chills (without fever)
CPT/HCPCS: 87507; 87804; 99212; 99214; G0463

== ENCOUNTER 2024-04-22 15:57 | Emergency (ER) | payer OTHER, SELFPAY ==
[2024-04-22 16:05] VITALS: BP 146/87; PULSE 90; RESP 21; TEMP 37.1; O2SAT 99; BMI 32.5
--- NOTE | 2024-04-22 16:22 | ED_ITS ---
Discharge Plan Disposition Patient Disposition: Home, Self-Care Condition: Good Prescriptions Prescriptions: New benzonatate 100 mg capsule 100 mg PO TIDP PRN (Reason: Cough) Qty: 30 0RF methylprednisolone 4 mg Tablets,Dose Pack 4 mg PO DIRECTED 6 Days Qty: 21 0RF Rx Instructions: Take 1 pack as directed for 6 days amoxicillin-pot clavulanate 875-125 mg Tablet 1 tab PO Q12H Qty: 20 0RF promethazine-DM 6.25-15 mg/5 mL Syrup 5 ml PO Q6H PRN (Reason: Cough) Qty: 240 0RF Referrals Follow up/Referrals: Provider,Referral, MD [Primary Care Provider] - See instructions Activity Restrictions/Add. Instructions Additional Instructions/Restrictions: Drink plenty of fluids. Take tylenol or ibuprofen for pain or fever. Take the medications as directed. Follow up with your regular doctor. GO TO THE ER FOR ANY WORSENING SYMPTOMS Don't start the oral steroids (medrol dose pack) until tomorrow since you had the shot here The cough medication (promethazine dm) will make you drowsy, so don't drive or operate heavy machinery after taking it. Clinical Impressions Clinical Impression: Acute bronchitis Stand Alone Forms Stand Alone Forms: Work/School Release Instructions Patient Instructions: Acute Bronchitis, DI for Acute Bronchitis Print Language Print Language: Romansh Discharge ED Provider: Amrit Cates [facility] General Stated complaint: chest congestion cough headache Mode of Arrival: Ambulatory Source of Information: Patient Limitations: No Limitations Time Seen by Provider: 04/22/24 16:22 Description of Symptoms (Recalled from Triage Doc. by RN): PATIENT C/O CHEST CONGESTION, EAR PAIN, HEADACHE, CHEST CONGESTION, AND CHEST HURTING WITH COUGH X 5 DAYS HEENT Symptoms (Recalled from RN notes): Yes Resp Symptoms (Recalled from RN notes): Yes Skin Symptoms (Recalled from RN notes): No MS Symptoms (Recalled from RN notes): No Functional Status (Recalled from RN notes): WNL Related Data Previous Rx's ?Medication ?Instructions ?Recorded amoxicillin 875 mg-potassium 1 tab PO Q12H #20 tabs 04/22/24 clavulanate 125 mg tablet benzonatate 100 mg capsule 100 mg PO TIDP PRN Cough #30 caps 04/22/24 methylprednisolone 4 mg tablets in 4 mg PO DIRECTED 6 days #21 tabs 04/22/24 a dose pack promethazine-DM 6.25 mg-15 mg/5 mL 5 ml PO Q6H PRN Cough #240 mL 04/22/24 oral syrup Allergies Allergy/AdvReac Type Severity Reaction Status Date / Time No Known Allergies Allergy Verified 11/05/23 13:30 Worker's Comp Is this a Worker's Comp case?: [facility] Disclaimer: The information contained in this section may have been updated after the patient was seen, as this information can be updated by other users. Medical History (Updated 04/22/24 @ 17:28 by Amrit Cates APRN) No significant past medical history Social History Smoking Status: Unknown if ever smoked alcohol intake: never current occupational status: employed ROS Obtained: Yes All systems reviewed & no additional complaints except as documented Constitutional Constitutional: Reports chills and Reports fever(s) Eyes Eyes: Denies eye discharge ENT Ears, Nose, Mouth, and Throat: Reports as per HPI Cardiovascular Cardiovascular: Denies chest pain Respiratory Respiratory: Denies chest congestion and Reports cough Gastrointestinal Gastrointestingal: Reports nausea; Denies abdominal pain, constipation, cramping, diarrhea or vomiting Musculoskeletal Musculoskeletal: Denies arthralgias Integumentary/Breasts Skin/Breast: Denies rash Neurologic Neurologic: Denies paresthesias Physical Exam General General appearance: alert and in no apparent distress Eye Eye exam: Present normal appearance, PERRL and EOMI ENT ENT exam: Present mucous membranes moist and normal external ear exam Expanded ENT Exam External ear exam: Present normal external inspection TM/Canal exam: Bilateral TM: erythema and bulging Nose exam: Absent sinus tenderness Nasal speculum exam: Bilateral: normal Mouth exam: Present normal external inspection; Absent drooling Teeth exam: Present normal inspection Throat exam: Present tonsillar erythema and tonsillomegaly Neck Neck exam: Present normal inspection, full ROM and trachea midline; Absent tenderness, lymphadenopathy or thyromegaly Chest Chest inspection: Present normal inspection and symmetric chest wall rise; Absent tenderness or rash Respiratory Respiratory exam: Present normal lung sounds bilaterally; Absent respiratory distress, wheezes, stridor or accessory muscle use Cardiovascular Cardiovascular exam: Present regular rate, normal rhythm and normal heart sounds Abdominal Exam Abdominal exam: Present soft; Absent distention, tenderness, guarding, rebound or rigidity Extremities Exam Extremities exam: Present normal inspection, full ROM and normal capillary refill; Absent tenderness or calf tenderness Back Exam Back exam: Present normal inspection and full ROM; Absent tenderness Neurological Exam Neurological exam: Present alert and oriented X3 Psychiatric Psychiatric exam: Present normal affect and normal mood Skin Skin exam: Present warm, dry, intact and normal color Lymphatic Lymphatic Findings: no adenopathy Medical Decision Making Medical Records Medical records reviewed: No I reviewed the patient's medical records. Screening: Per USPSTF and CDC recommendations, given the prevalence of disease in our region, it is our hospital?s policy to screen for HIV and viral Hepatitis for all patients aged 18 and over and those with ongoing risk factors. George Inquiry Pt receiving controlled substance: No Vital Signs: 04/22/24 16:05 Temperature 98.7 F Temperature Source Oral Pulse Rate [Left Brachial] 90 Respiratory Rate 21 Blood Pressure [Left Arm] 146/87 H Blood Pressure Mean [Left Arm] 106 Blood Pressure Source [Left Arm] Automatic Cuff Blood Pressure Position [Left Arm] Sitting 02 Sat by Pulse Oximetry 99 Oxygen Delivery Method Room Air Lab Data Lab results reviewed: Yes I reviewed the patient's lab results.
--- NOTE | 2024-04-22 16:40 | XR_ITS ---
PROCEDURE INFORMATION: Exam: XR Chest Exam date and time: 04/22/2024 4:38 PM Age: 33 years old Clinical indication: Cough; Additional info: Productive cough, congestion TECHNIQUE: Imaging protocol: Radiologic exam of the chest. Views: 2 views. COMPARISON: No relevant prior studies available. FINDINGS: Lungs: Unremarkable. No consolidation. Pleural spaces: Unremarkable. No pleural effusion. No pneumothorax. Heart/Mediastinum: Unremarkable. No cardiomegaly. Bones/joints: Unremarkable. IMPRESSION: No acute findings.
[2024-04-22] MEDS: LIDOCAINE 1% 5ML PF VIAL IM (17:19)
[2024-04-22] MEDS: cefTRIAXone 1GM VIAL 1 GM IM (17:19)
[2024-04-22] MEDS: METHYLPREDNISOLONE SOD SUCC 125MG VIAL 125 MG IM (17:19)
[2024-04-22 17:32] VITALS: BP 146/87; PULSE 90; RESP 21; TEMP 37.1; O2SAT 99
== END 2024-04-22 17:35 | disposition home or self-care (01) ==
PROVIDERS: Emergency Provider Nurse Practitioner Family
DX: J20.9 Acute bronchitis, unspecified (principal)
CPT/HCPCS: 71046; 96372; 99213; G0381; J0696; J2919

== ENCOUNTER 2024-08-09 20:36 | Emergency (ER) | payer OTHER, SELFPAY ==
[2024-08-09 20:53] VITALS: PULSE 73; RESP 18; TEMP 36.7; O2SAT 100; BMI 32.5
--- NOTE | 2024-08-09 20:56 | XR_ITS ---
PROCEDURE INFORMATION: Exam: XR Right Foot Exam date and time: 08/09/2024 9:02 PM Age: 34 years old Clinical indication: Pain; Foot; Right; Additional info: foot injury TECHNIQUE: Imaging protocol: Radiologic exam of the right foot. Views: 3 or more views. COMPARISON: CR XR FOOT RT MIN 3V 12/04/2019 2:20 PM FINDINGS: Bones/joints: No acute fracture. No dislocation. Soft tissues: Unremarkable. IMPRESSION: No fracture. If pain persists, suggest splinting and follow up radiographs in 7-10 days.
--- NOTE | 2024-08-09 23:11 | HMH.EDGENADL ---
Discharge Plan Disposition Patient Disposition: Home, Self-Care Condition: Good Prescriptions Prescriptions: No Action benzonatate 100 mg capsule 100 mg PO TIDP PRN (Reason: Cough) Qty: 30 0RF methylprednisolone 4 mg Tablets,Dose Pack 4 mg PO DIRECTED 6 Days Qty: 21 0RF Rx Instructions: Take 1 pack as directed for 6 days amoxicillin-pot clavulanate 875-125 mg Tablet 1 tab PO Q12H Qty: 20 0RF promethazine-DM 6.25-15 mg/5 mL Syrup 5 ml PO Q6H PRN (Reason: Cough) Qty: 240 0RF Referrals Follow up/Referrals: Provider,Referral, MD [Primary Care Provider] - See instructions Activity Restrictions/Add. Instructions Additional Instructions/Restrictions: Please follow-up with your primary care provider. Please return to the emergency department if you develop any new or worsening symptoms or become concerned for your health. Clinical Impressions Clinical Impression: Pain in toe of right foot Print Language Print Language: Mongolian Discharge ED Provider: Mohan Diaz General Adult HPI General Chief complaint: Extremity Injury, Lower Stated complaint: [id number] RT foot inj Time Seen by Provider: 08/09/24 23:11 Mode of Arrival: Ambulatory Description of Symptoms (Recalled from ER Triage Doc. by RN): Pt states he dropped a ladder on his foot. Pt has bruising/swelling to the third toe. History of Present Illness HPI narrative: 34-year-old male without significant past medical history presents for left foot injury. He dropped a ladder onto his foot and has pain and bruising of the right third digit. He is able to walk but with pain. Related Data Previous Rx's ?Medication ?Instructions ?Recorded amoxicillin 875 mg-potassium 1 tab PO Q12H #20 tabs 04/22/24 clavulanate 125 mg tablet benzonatate 100 mg capsule 100 mg PO TIDP PRN Cough #30 caps 04/22/24 methylprednisolone 4 mg tablets in 4 mg PO DIRECTED 6 days #21 tabs 04/22/24 a dose pack promethazine-DM 6.25 mg-15 mg/5 mL 5 ml PO Q6H PRN Cough #240 mL 04/22/24 oral syrup Allergies Allergy/AdvReac Type Severity Reaction Status Date / Time No Known Allergies Allergy Verified 11/05/23 13:30 [facility] Disclaimer: The information contained in this section may have been updated after the patient was seen, as this information can be updated by other users. Medical History (Updated 08/09/24 @ 23:16 by Mohan Diaz MD) No significant past medical history Social History (Updated 04/27/24 @ 14:30 by Amrit Cates APRN) Smoking Status: Current some day smoker alcohol intake: never current occupational status: employed Travel in the last 8 weeks: None Have you lived/traveled outside [place] in past 30 days?: No Contact w/someone who lives/traveled outside US past 30 days?: No Exposure to someone with infectious disease in past 14 days?: No Do you have a fever (greater than 100.4 F or 38 C)?: No Have you tested positive for COVID-19: No Exposed to someone with COVID-19 in past 14 days?: No Do you have a sore throat?: No Do you have a cough?: No Do you have any weakness?: No Do you have any diarrhea?: No Are you experiencing any unusual bleeding?: No Do you have any muscle aches/pain?: No Do you have any abdominal pain?: No Are you experiencing loss of taste or smell?: No Other Medical History Have you received the Flu Vaccine for this season: No Have you received the Pneumonia Vaccine: No ROS Obtained: Yes All systems reviewed & no additional complaints except as documented Physical Exam General General appearance: alert and in no apparent distress Head Head exam: atraumatic and normocephalic Eye Eye exam: Present normal appearance, PERRL and EOMI ENT ENT exam: Present normal oropharynx and normal external ear exam Neck Neck exam: Present normal inspection and full ROM Chest Chest inspection: Present normal inspection and symmetric chest wall rise; Absent tenderness Respiratory Respiratory exam: Present normal lung sounds bilaterally; Absent respiratory distress Cardiovascular Cardiovascular exam: Present regular rate and normal rhythm Abdominal Exam Abdominal exam: Present soft; Absent distention, tenderness or guarding Extremities Exam Extremities exam: Present other (Bruising and tenderness to the right third toe. No subungual hematoma noted); Absent edema or joint swelling Back Exam Back exam: Present normal inspection; Absent tenderness Neurological Exam Neurological exam: Present alert and oriented X3; Absent motor sensory deficit Psychiatric Psychiatric exam: Present normal affect and normal mood Skin Skin exam: Present warm, dry and normal color Lymphatic Lymphatic Findings: no adenopathy Medical Decision Making Medical Records Medical records reviewed: Yes I reviewed the patient's medical records. Screening: Per USPSTF and CDC recommendations, given the prevalence of disease in our region, it is our hospital?s policy to screen for HIV and viral Hepatitis for all patients aged 18 and over and those with ongoing risk factors. George Inquiry Pt receiving controlled substance: No George was queried for this patient: No Vital Signs: 08/09/24 20:53 08/09/24 23:21 08/09/24 23:21 Temperature 98.1 F 98.7 F 98.1 F Temperature Source Oral Oral Pulse Rate 74 Pulse Rate [Right] 73 72 Respiratory Rate 18 14 14 Blood Pressure 124/68 Blood Pressure [Right Arm] 124/74 Blood Pressure Mean [Right Arm] 90 Blood Pressure Source [Right Arm] Automatic Cuff Blood Pressure Position Sitting Blood Pressure Position [Right Arm] Sitting Sitting 02 Sat by Pulse Oximetry 100 98 Oxygen Delivery Method Room Air Room Air Lab Data Lab results reviewed: Yes I reviewed the patient's lab results. Orders (Tests/Meds): ORDERS Category Date Time Status XR foot RT min 3V Stat Exams 08/09/24 20:56 Completed Medical Decision Narrative: 34-year-old male without significant past medical history presents for right third toe pain after trauma. Differential includes but not limited to fracture dislocation hematoma. Radiograph of the right foot was obtained and independently interpreted by me and shows no evidence of acute fracture. Patient was given instructions regarding symptomatic care and return precautions. Procedures Risk/Benefits of Procedure(s) Were Explained: Yes Critical Care Critical Care Time Critical Care Time: No
[2024-08-09 23:21] VITALS: BP 124/68; BP 124/74; PULSE 72; PULSE 74; RESP 14; TEMP 36.7; TEMP 37.1; O2SAT 100; O2SAT 98; BMI 29.8
== END 2024-08-09 23:26 | disposition home or self-care (01) ==
PROVIDERS: Emergency Provider Emergency Medicine
DX: M79.671 Pain in right foot (principal); M79.674 Pain in right toe(s); Z72.0 Tobacco use; W22.8XXA Striking against or struck by other objects, initial encounter; Y93.89 Activity, other specified; Y92.9 Unspecified place or not applicable
CPT/HCPCS: 73630; 99283